=== PATIENT | male | born 1985 | race Caucasian/White ===

== ENCOUNTER 2020-11-24 21:15 | Emergency (ER) | payer MEDICAID ==
[~2020-11-24] VITALS: Ht 180.3 cm; Wt 63.5 kg
[2020-11-24 21:17] VITALS: BP 125/65
--- NOTE | 2020-11-24 21:17 | NUR ---
RHETT DURON, TAKEN TO CHAIR C
[2020-11-24] MEDS ORDERED: POLY10SO OP (22:35)
--- NOTE | 2020-11-24 22:47 | NUR ---
PATIENT BIB [place] [employer]. PATIENT EXAMINED BY DR. LINDSAY. PATIENT MEDICALLY CLEARED AND RELEASED IN CUSTODY IN STABLE CONDITION. ORIGINAL PRE-BOOK FORM GIVEN TO OFFICER CAROLYN #[id number].
== END 2020-11-24 22:47 ==
LOC: MED 21:15
DX: S60.511A Abrasion of right hand, initial encounter (principal); S60.512A Abrasion of left hand, initial encounter; F11.90 Opioid use, unspecified, uncomplicated; F17.200 Nicotine dependence, unspecified, uncomplicated; Z02.89 Encounter for other administrative examinations; Y04.0XXA Assault by unarmed brawl or fight, initial encounter; Y93.89 Activity, other specified; Y92.89 Other specified places as the place of occurrence of the external cause; Y99.8 Other external cause status
CPT/HCPCS: 99283